=== PATIENT | female | born 1955 | race Caucasian/White ===

== ENCOUNTER 2024-03-12 14:10 | Emergency (ER) | payer SELFPAY ==
[2024-03-12 14:12] VITALS: BP 82/37; PULSE 76; RESP 18; O2SAT 96
--- NOTE | 2024-03-12 14:31 | PC.NURSE ---
Pt states she no longer wishes to be seen, pt A&O x4. Pt aware of risks of leaving prior to evaluation and pt encouraged to seek medical care if symptoms present or worsen. Pt left triage per own accord.
== END 2024-03-12 14:31 | disposition left against medical advice (07) ==
LOC: ANHED 14:41
DX: S19.9XXA Unspecified injury of neck, initial encounter (principal)
CPT/HCPCS: 99199